=== PATIENT | female | born 1980 | race American Indian/Alaskan Native ===

== ENCOUNTER 2016-05-04 20:32 | Inpatient (IN) | payer MEDICAID ==
[2016-05-04] MEDS ORDERED: SUBLIMAZE IV PRN (22:14)
[2016-05-04] MEDS ORDERED: CERVIDIL VG ONE (22:14)
--- NOTE | 2016-05-04 22:23 | History and Physical Report ---
History of Present Illness Date of examination: 05/04/16 Date of admission: 05/04/16 20:32 Chief complaint: IOL for postdates History of present illness: HD#1 This is a 35 yo at 41 weeks admitted to labor and delivery for IOL for post dates. Her course include 1. AMA- visits to [facility] 2. External hemorrhoids -topicla creme 3. unstable lie -currently vertex 4. S>d APA followup with growth 5. Polyhydramnios labs O+ antibody neg H/H 11.3/36.2 pap normal Rubella IMM RPR NR Urine cxr neg Hep neg HIV neg Plt 283 HSV2 Neg sickle AAgonneg chlam neg US single viable EGA 14 weeks EDC 04/28/16 anterior placenta quad declined antatomy scan normal H/H 10.6/34.1 DM 104 HIV/RPR NR chlam neg nik neg GBS neg US +1 weeks EFW 4022 FERNY 18cm vertex ardon EGA 40+1 weeks antreior grade 2 -3 placenta BPP 8/8 Past History Past Medical History: no pertinent history Past Surgical History: no surgical history Family/Genetic History: none Social history: lives with family. denies: smoking, alcohol abuse, IV drug use - Obstetrical History Expected Date of Delivery: 04/28/16 Actual Gestation: 41 Week(s) 0 Day(s) : 1 Para: 0 Hx # Term Pregnancies: 0 Number of Pregnancies: 0 Spontaneous Abortions: 0 Induced : 0 Number of Living Children: 0 Medications and Allergies Allergies Allergy/AdvReac Type Severity Reaction Status Date / Time chloroquine Allergy Vomiting Verified 05/04/16 22:28 Home Medications Medication Instructions Recorded Confirmed Last Taken Type Pnv with Ca,No.72/Iron/FA [Pnv 1 tab PO DAILY 02/23/16 02/23/16 Unknown History Plus Multivit Tab] Pnv with Ca,No.72/Iron/FA [Pnv 1 tab PO DAILY 02/23/16 02/23/16 Unknown History Plus Multivit Tab] - Vital Signs Vital signs: Vital Signs Temp Pulse Resp BP 98.9 F 95 H 18 133/77 05/04/16 21:34 05/04/16 21:34 05/04/16 21:34 05/04/16 21:34 Temp Pulse Resp BP Pulse Ox 98.9 F 95 H 18 133/77 05/04/16 21:34 05/04/16 21:37 05/04/16 21:34 05/04/16 21:37 - Physical Exam Breasts: Positive: normal Cardiovascular: Regular rate, Normal S1, Normal S2 Lungs: Positive: Clear to auscultation, Normal air movement Abdomen: Positive: normal appearance, soft, normal bowel sounds. Negative: distention, tenderness Genitourinary (Female): Positive: normal external genitalia, normal perenium Vulva: both: normal Vagina: Positive: normal moisture Uterus: Positive: enlarged, normal contour Anus/Rectum: Positive: normal perianal skin, heme negative Extremities: Positive: normal Deep Tendon Reflex Grade: Normal +2 - Obstetrical FHR: category 1 Uterine Contraction Monitor Mode: Palpation Cervical Dilatation: 0 Cervical Effacement Percentage: 0 station: -4 Uterine Contraction Pattern: Irregular Uterine Tone Measurement Phase: Contraction Uterine Contraction Intensity: Mild Results Result Diagrams: 05/04/16 22:55 All other labs normal. Assessment and Plan A/P IOL for post dates --GBS neg no abx required --admission labs ---ivf initiated --unfavorable cervix will start with cervidil --counseled concernig iol which include risk of c/sec, usage of instrument delivery, shoulder dystocia , PP hemorrhage ---consents signed ---expect vaginal delivery ---routine orders ( pain meds, epidural , EFM continious)
[2016-05-04] MEDS ORDERED: BRETHINE SUB-Q PRN (22:32)
[2016-05-04] MEDS ORDERED: ePHEDrine SULFATE IV PRN (22:32)
[2016-05-04] MEDS ORDERED: MINERAL OIL PO PRN (22:32)
[2016-05-04] MEDS ORDERED: NARCAN 0.4 MG/1 ML IV PRN (22:32)
[2016-05-04] MEDS ORDERED: XYLOCAINE 2% INFILTRATI ONE (22:32)
[2016-05-04] MEDS ORDERED: PHENERGAN PO PRN (22:32)
[2016-05-04] MEDS ORDERED: BRETHINE IVP PRN (22:32)
[2016-05-04] MEDS ORDERED: ZOFRAN IV PRN (22:32)
[2016-05-04] MEDS ORDERED: PITOCin/NS 30 UNIT/500ML 30 UNITS/500 ML BAG IV SCH ×2 (23:00)
[2016-05-04] MEDS ORDERED: PITOCin/NS 20 UNIT/1000ML DRIP 20 UNITS/1,000 ML BAG IV SCH (23:00)
[2016-05-04] MEDS ORDERED: LACTATED RINGERS 1,000 ML IV SCH (23:00)
[2016-05-04 23:29] LABS: Hematocrit 34.4 % (30.3-42.9); Mean Corpuscular HGB Conc 32 % (30-34); Mean Corpuscular Hemoglobin 26 pg (28-32); Mean Corpuscular Volume 82 fl (79-97); Platelet Count 167 K/mm3 (140-440); Red Blood Count 4.18 M/mm3 (3.65-5.03); Red Cell Distribution Width 17.8 % (13.2-15.2); White Blood Count 7.7 K/mm3 (4.5-11.0)
--- NOTE | 2016-05-05 08:08 | Progress Note ---
Assessment and Plan A: IUP at 41 weeks Induction of labor Unfavorable Cervix P: Diet Am Care Cytotec Subjective - Subjective Date of service: 05/05/16 Patient reports: movement normal, contractions, no new complaints, no loss of fluid, no vaginal bleeding Objective - Vital Signs Vital Signs: Vital Signs - 12hr 05/04/16 05/04/16 05/04/16 21:34 21:37 23:25 Temperature 98.9 F Pulse Rate 95 H Pulse Rate [ 95 H Left From Monitor] Respiratory 18 Rate Blood Pressure 133/77 Blood Pressure 133/77 [Right Arm] O2 Sat by Pulse 95 Oximetry 05/04/16 05/04/16 05/04/16 23:30 23:35 23:40 Temperature Pulse Rate 98 H 97 H 82 Pulse Rate [ Left From Monitor] Respiratory Rate Blood Pressure Blood Pressure [Right Arm] O2 Sat by Pulse 98 98 99 Oximetry 05/04/16 05/04/16 05/04/16 23:45 23:50 23:55 Temperature Pulse Rate 99 H 95 H 98 H Pulse Rate [ Left From Monitor] Respiratory Rate Blood Pressure Blood Pressure [Right Arm] O2 Sat by Pulse 97 98 98 Oximetry 05/05/16 05/05/16 05/05/16 00:00 00:05 00:10 Temperature Pulse Rate 91 H 95 H 91 H Pulse Rate [ Left From Monitor] Respiratory Rate Blood Pressure Blood Pressure [Right Arm] O2 Sat by Pulse 98 98 97 Oximetry 05/05/16 05/05/16 05/05/16 00:15 00:20 00:25 Temperature Pulse Rate 91 H 93 H 91 H Pulse Rate [ Left From Monitor] Respiratory Rate Blood Pressure Blood Pressure [Right Arm] O2 Sat by Pulse 97 98 96 Oximetry 05/05/16 05/05/16 05/05/16 00:30 00:35 00:40 Temperature Pulse Rate 89 89 93 H Pulse Rate [ Left From Monitor] Respiratory Rate Blood Pressure Blood Pressure [Right Arm] O2 Sat by Pulse 96 97 97 Oximetry 05/05/16 05/05/16 05/05/16 00:45 00:50 00:55 Temperature Pulse Rate 99 H 96 H 89 Pulse Rate [ Left From Monitor] Respiratory Rate Blood Pressure Blood Pressure [Right Arm] O2 Sat by Pulse 96 96 98 Oximetry 05/05/16 05/05/16 05/05/16 01:00 01:05 01:10 Temperature Pulse Rate 88 89 89 Pulse Rate [ Left From Monitor] Respiratory Rate Blood Pressure Blood Pressure [Right Arm] O2 Sat by Pulse 98 98 98 Oximetry 05/05/16 05/05/16 05/05/16 01:15 01:20 01:25 Temperature Pulse Rate 89 100 H 78 Pulse Rate [ Left From Monitor] Respiratory Rate Blood Pressure Blood Pressure [Right Arm] O2 Sat by Pulse 97 98 97 Oximetry 05/05/16 05/05/16 05/05/16 01:30 01:35 01:40 Temperature Pulse Rate 88 83 89 Pulse Rate [ Left From Monitor] Respiratory Rate Blood Pressure Blood Pressure [Right Arm] O2 Sat by Pulse 97 98 96 Oximetry 05/05/16 05/05/16 05/05/16 01:45 01:46 01:50 Temperature Pulse Rate 88 111 H 84 Pulse Rate [ Left From Monitor] Respiratory Rate Blood Pressure Blood Pressure [Right Arm] O2 Sat by Pulse 95 94 98 Oximetry 05/05/16 05/05/16 05/05/16 01:55 02:00 02:05 Temperature Pulse Rate 101 H 90 87 Pulse Rate [ Left From Monitor] Respiratory Rate Blood Pressure Blood Pressure [Right Arm] O2 Sat by Pulse 96 96 97 Oximetry 05/05/16 05/05/16 05/05/16 02:10 02:21 02:26 Temperature Pulse Rate 96 H 99 H 90 Pulse Rate [ Left From Monitor] Respiratory Rate Blood Pressure Blood Pressure [Right Arm] O2 Sat by Pulse 97 98 98 Oximetry 05/05/16 05/05/16 05/05/16 02:31 02:36 02:41 Temperature Pulse Rate 84 91 H 82 Pulse Rate [ Left From Monitor] Respiratory Rate Blood Pressure Blood Pressure [Right Arm] O2 Sat by Pulse 98 97 97 Oximetry 05/05/16 05/05/16 05/05/16 02:46 02:51 02:56 Temperature Pulse Rate 97 H 89 96 H Pulse Rate [ Left From Monitor] Respiratory Rate Blood Pressure Blood Pressure [Right Arm] O2 Sat by Pulse 97 97 96 Oximetry 05/05/16 05/05/16 05/05/16 03:01 03:06 03:11 Temperature Pulse Rate 91 H 90 90 Pulse Rate [ Left From Monitor] Respiratory Rate Blood Pressure Blood Pressure [Right Arm] O2 Sat by Pulse 97 97 96 Oximetry 05/05/16 05/05/1605/05/17 03:16 03:18 03:21 Temperature Pulse Rate 88 92 H 100 H Pulse Rate [ Left From Monitor] Respiratory Rate Blood Pressure Blood Pressure [Right Arm] O2 Sat by Pulse 96 94 92 Oximetry 05/05/16 05/05/16 05/05/16 03:23 03:26 03:29 Temperature Pulse Rate 101 H 98 H 96 H Pulse Rate [ Left From Monitor] Respiratory Rate Blood Pressure Blood Pressure [Right Arm] O2 Sat by Pulse 92 96 94 Oximetry 05/05/16 05/05/16 05/05/16 03:31 03:35 03:36 Temperature Pulse Rate 97 H 86 89 Pulse Rate [ Left From Monitor] Respiratory Rate Blood Pressure Blood Pressure [Right Arm] O2 Sat by Pulse 93 93 94 Oximetry 05/05/16 05/05/16 05/05/16 03:41 03:43 03:46 Temperature Pulse Rate 93 H 93 H 86 Pulse Rate [ Left From Monitor] Respiratory Rate Blood Pressure Blood Pressure [Right Arm] O2 Sat by Pulse 96 93 95 Oximetry 05/05/16 05/05/16 05/05/16 03:51 03:56 04:01 Temperature Pulse Rate 93 H 82 79 Pulse Rate [ Left From Monitor] Respiratory Rate Blood Pressure Blood Pressure [Right Arm] O2 Sat by Pulse 93 97 97 Oximetry 05/05/16 05/05/16 05/05/16 04:05 04:11 04:16 Temperature Pulse Rate 90 81 91 H Pulse Rate [ Left From Monitor] Respiratory Rate Blood Pressure Blood Pressure [Right Arm] O2 Sat by Pulse 96 97 96 Oximetry 05/05/16 05/05/16 05/05/16 04:17 04:21 04:26 Temperature Pulse Rate 86 93 H 87 Pulse Rate [ Left From Monitor] Respiratory Rate Blood Pressure Blood Pressure [Right Arm] O2 Sat by Pulse 94 96 96 Oximetry 05/05/16 05/05/16 05/05/16 04:29 04:30 04:35 Temperature Pulse Rate 91 H 93 H 88 Pulse Rate [ Left From Monitor] Respiratory Rate Blood Pressure Blood Pressure [Right Arm] O2 Sat by Pulse 94 96 96 Oximetry 05/05/16 05/05/16 05/05/16 04:40 04:46 04:51 Temperature Pulse Rate 83 86 84 Pulse Rate [ Left From Monitor] Respiratory Rate Blood Pressure Blood Pressure [Right Arm] O2 Sat by Pulse 96 96 96 Oximetry 05/05/16 05/05/16 05/05/16 04:55 05:01 05:05 Temperature Pulse Rate 82 86 89 Pulse Rate [ Left From Monitor] Respiratory Rate Blood Pressure Blood Pressure [Right Arm] O2 Sat by Pulse 96 97 96 Oximetry 05/05/16 05/05/16 05/05/16 05:11 05:15 05:21 Temperature Pulse Rate 85 87 87 Pulse Rate [ Left From Monitor] Respiratory Rate Blood Pressure Blood Pressure [Right Arm] O2 Sat by Pulse 97 96 97 Oximetry 05/05/16 05/05/16 05/05/16 05:25 05:30 05:36 Temperature Pulse Rate 83 84 99 H Pulse Rate [ Left From Monitor] Respiratory Rate Blood Pressure Blood Pressure [Right Arm] O2 Sat by Pulse 96 88 96 Oximetry 05/05/16 05/05/16 05/05/16 05:40 05:45 05:50 Temperature Pulse Rate 87 91 H 93 H Pulse Rate [ Left From Monitor] Respiratory Rate Blood Pressure Blood Pressure [Right Arm] O2 Sat by Pulse 97 97 98 Oximetry 05/05/16 05/05/16 05/05/16 05:56 06:00 06:05 Temperature Pulse Rate 84 82 90 Pulse Rate [ Left From Monitor] Respiratory Rate Blood Pressure Blood Pressure [Right Arm] O2 Sat by Pulse 97 96 97 Oximetry 05/05/16 05/05/16 05/05/16 06:10 06:29 06:33 Temperature Pulse Rate 87 93 H 87 Pulse Rate [ Left From Monitor] Respiratory Rate Blood Pressure Blood Pressure [Right Arm] O2 Sat by Pulse 97 99 97 Oximetry 05/05/16 05/05/16 05/05/16 06:38 06:43 06:48 Temperature Pulse Rate 86 89 89 Pulse Rate [ Left From Monitor] Respiratory Rate Blood Pressure Blood Pressure [Right Arm] O2 Sat by Pulse 99 98 99 Oximetry 05/05/16 05/05/16 05/05/16 06:53 06:58 07:03 Temperature Pulse Rate 99 H 92 H 98 H Pulse Rate [ Left From Monitor] Respiratory Rate Blood Pressure Blood Pressure [Right Arm] O2 Sat by Pulse 98 98 98 Oximetry 05/05/16 05/05/16 05/05/16 07:08 07:13 07:18 Temperature 98.8 F Pulse Rate 83 87 82 Pulse Rate [ Left From Monitor] Respiratory 14 Rate Blood Pressure Blood Pressure [Right Arm] O2 Sat by Pulse 98 98 98 Oximetry 05/05/16 05/05/16 05/05/16 07:23 07:28 07:33 Temperature Pulse Rate 82 81 105 H Pulse Rate [ Left From Monitor] Respiratory Rate Blood Pressure Blood Pressure [Right Arm] O2 Sat by Pulse 98 99 97 Oximetry 05/05/16 05/05/16 05/05/16 07:38 07:43 07:48 Temperature Pulse Rate 91 H 89 83 Pulse Rate [ Left From Monitor] Respiratory Rate Blood Pressure Blood Pressure [Right Arm] O2 Sat by Pulse 98 98 97 Oximetry 05/05/16 05/05/16 07:53 07:58 Temperature Pulse Rate 78 91 H Pulse Rate [ Left From Monitor] Respiratory Rate Blood Pressure Blood Pressure [Right Arm] O2 Sat by Pulse 98 99 Oximetry - Exam Abdomen: Present: normal appearance FHR: category 1 Uterine Contraction Monitor Mode: External Cervical Dilatation: 0 Cervical Effacement Percentage: 30 station: -4 Uterine Contraction Pattern: Irregular Uterine Tone Measurement Phase: Resting Uterine Contraction Intensity: Mild - Labs Labs: Abnormal Labs 05/04/16 22:55 MCH 26 L RDW 17.8 H Laboratory Results - last 24 hr 05/04/16 05/04/16 22:55 22:55 WBC 7.7 RBC 4.18 Hgb 11.0 Hct 34.4 MCV 82 MCH 26 L MCHC 32 RDW 17.8 H Plt Count 167 Blood Type O POSITIVE Antibody Screen Negative
[2016-05-05] MEDS: CYTOTEC VG PRN ×2 (10:00→14:00)
[2016-05-05] MEDS ORDERED: STADOL IV PRN (16:39)
[2016-05-05] MEDS ORDERED: ePHEDrine SULFATE IV PRN (18:37)
[2016-05-05] MEDS ORDERED: NARCAN 2 MG/2 ML IV PRN (18:37)
--- NOTE | 2016-05-05 18:37 | Anesthesia Consultation ---
Anesthesia Consult and Med Hx Date of service: 05/05/16 - Airway Anesthetic Teeth Evaluation: Good ROM Head & Neck: Adequate Mental/Hyoid Distance: Adequate Mallampati Class: Class II Intubation Access Assessment: Good - Pulmonary Exam CTA: Yes - Cardiac Exam Cardiac Exam: No Murmur - Pre-Operative Health Status ASA Pre-Surgery Classification: ASA2 Proposed Anesthetic Plan: Epidural - Pulmonary Hx Asthma: No COPD: No Hx Pneumonia: No - Cardiovascular System Hx Hypertension: No - Central Nervous System Hx Seizures: No Hx Psychiatric Problems: No - Endocrine Hx Renal Disease: No Hx End Stage Renal Disease: No Hx Hypothyroidism: No Hx Hyperthyroidism: No - Hematic Hx Anemia: No Hx Sickle Cell Disease: No - Other Systems Hx Alcohol Use: No
[2016-05-05] MEDS ORDERED: fentaNYL-BUPIV 2 MCG/ML-0.125% 200 MCG/100 ML BAG EPIDURAL SCH (19:00)
[2016-05-06] MEDS ORDERED: PEPCID IV ONE (00:51)
[2016-05-06] MEDS ORDERED: REGLAN ONE (00:51)
[2016-05-06] MEDS ORDERED: BICITRA ONE (00:51)
--- NOTE | 2016-05-06 01:04 | Event Note ---
Date: 05/06/16 station remains unchanged throughout labor process though she is complete and FHTs now with repetitive late decelerations with each contraction. Plan to proceed with primary section and other indicated procedures.
[2016-05-06] MEDS ORDERED: ANCEF/STERILE WATER 2 GM/20 ML IV ONE (01:10)
[2016-05-06] MEDS ORDERED: XYLOCAINE MPF 2% ONE ×4 (01:25)
[2016-05-06] MEDS ORDERED: DIPRIVAN 10 MG/ML IV ONE (01:30)
[2016-05-06] MEDS ORDERED: NACL 0.9% IR ONE (01:30)
[2016-05-06] MEDS ORDERED: WATER FOR IRRIG STERILE IR ONE (01:30)
[2016-05-06] MEDS ORDERED: MORPHINE ONE ×2 (01:45→01:46)
[2016-05-06] MEDS ORDERED: NS 0.9% IV ONE (02:06)
--- NOTE | 2016-05-06 02:39 | Procedure Note ---
OB Delivery Note - Delivery Date of Delivery: 05/06/16 Surgeon: STEPHANIE SCHULTZ Estimated blood loss: 1000cc - Section Preop diagnosis: arrest of descent, nonreassuring FHR tracing Postop diagnosis: same section procedure: section, primary low transverse Disposition: PACU Complications: uterine atony Narrative: Please see operative note - Infant A at 1 minute: 3 at 5 minutes: 5 Infant Gender: Male (Apgars 3,5,8; 4427g (9lb 12 oz) @ 0148)
--- NOTE | 2016-05-06 02:43 | Operative Report ---
Operative Report Operative Report: Date of procedure: May 06, 2016 Preoperative diagnosis: 1) IUP at 41w1d 2) Nonreassuring status 3) Arrest of Descent 4) Cephalopelvic disproportion Postoperative diagnosis: Same Procedure: Primary low transverse section Surgeon: Sharlene Hernandez M.D. Anesthesia:Epidural Findings: 1) Viable male , Apgars 3,5 and 8, weight 4427g, (9 lb 12 oz) 2) Normal-appearing uterus ovaries and tubes Estimated blood loss: 1000 mL IV fluids: 1200 mL Urine output 200 mL, blood-tinged prior to the procedure; ramona colored after the procedure Drains: Frye to gravity Specimens: None Complications None. Counts correct x 3 Medications: Total of 40 units of pitocin given in IV fluids Disposition: Stable to PACU Indication for procedure: Pt is a 35 year old primigradivida at 41w1d who was admitted for induction secondary to postdates. She progressed to complete dilation, but never achieved more than -3 station. The FHT began to have repetitive late decelerations and the decision was made to proceed with delivery. Operation in detail: After the risks, benefits, alternatives and complications were explained to the patient she gave informed consent for the procedure. She was subsequently taken to the operating room where epidural anesthesia was noted to be adequate. She was subsequently placed in the dorsal supine position with leftward tilt and prepped and draped in a normal sterile fashion. heart tones were noted to be in the 140s prior to incision. A timeout was performed. A Pfannenstiel skin incision was made with the knife and carried down to the layer of the fascia with the Bovie. The fascia was incised in the midline and the fascial incision was extended bilaterally with the Bovie. Attention was then turned to the superior aspect of the incision which was grasped with two Kochers, tented up, and dissected off the rectus muscles. Attention was then turned to the inferior aspect of the incision which was grasped with two Kochers , tented up and dissected off the rectus muscles. The rectus muscles were then in the midline and partially transected for adequate visualization. The peritoneum was then entered bluntly. The peritoneal incision was extended with good visualization of the bladder. The peritoneal incision was then stretched. An Bandar self-retaining retractor was placed for visualization. The bladder blade was placed. The vesicouterine peritoneum was grasped with smooth pickups and incised with Metzenbaum scissors. Metzenbaum scissors were used to extend the incision bilaterally. The bladder flap was then created digitally and the bladder blade was replaced. A transverse incision was made in the lower uterine segment with a knife and extended bilaterally with the bandage scissors. The head was delivered without difficulty followed by shoulders and body. was bulb suctioned at delivery. The cord was clamped and cut and the was handed to NICU staff in attendance. Cord blood was collected. The placenta was then delivered manually. The uterus was then cleared of all clots and debris. The hysterotomy was then reapproximated with 0 Vicryl in a running locked fashion. A second layer of the same suture was used in imbricating fashion. The uterus was noted to be atonic and an additional 20 units of pitocin was added to the IV fluids. The hysterotomy was inspected and hemostasis was noted. The Bandar self-retaining retractor was removed. The gutters were irrigated and cleared of all clots and debris. The hysterotomy was again inspected and noted to be hemostatic. Surgicel was placed over the hysterotomy. The peritoneum was reapproximated with 3-0 Vicryl. The fascia was reapproximated with 0 Vicryl in a running fashion. The skin was reapproximated with 4-0 Vicryl in a subcuticular fashion. The incision was then covered with steri strips and a pressure dressing. The procedure was then ended. The patient tolerated the procedure well and was taken to the PACU in stable condition. All instrument, lap, and needle counts were correct 3.
[2016-05-06] MEDS ORDERED: PHENERGAN PR PRN (02:53)
[2016-05-06] MEDS ORDERED: DILAUDID IV PRN (02:53)
[2016-05-06] MEDS ORDERED: PHENERGAN PO PRN (02:53)
[2016-05-06] MEDS ORDERED: ZOFRAN IV PRN ×2 (02:53→04:36)
[2016-05-06] MEDS ORDERED: NARCAN 0.4 MG/1 ML IV PRN ×2 (02:53→04:36)
--- NOTE | 2016-05-06 02:53 | Post Anesthesia Evaluation ---
- Post Anesthesia Evaluation Patient Participated: Yes Airway Patent: Yes Stable Respiratory Function: Yes Nausea/Vomiting: No Temp > 96.8F: Yes Pain Manageable: Yes Adequeate Hydration: Yes Anesthesia Complications: No
[2016-05-06] MEDS ORDERED: fentaNYL-BUPIV 2 MCG/ML-0.125% 200 MCG/100 ML BAG EPIDURAL SCH (03:00)
[2016-05-06] MEDS ORDERED: SODIUM CHLORIDE FLUSH SYRINGE 10 ML IV PRN ×2 (03:00→04:36)
[2016-05-06] MEDS ORDERED: MYLICON PO PRN (04:36)
[2016-05-06] MEDS ORDERED: PITOCin/NS 20 UNIT/1000ML DRIP 20 UNITS/1,000 ML BAG IV SCH (04:36)
[2016-05-06] MEDS ORDERED: D5LR 1,000 ML IV SCH (04:36)
[2016-05-06] MEDS ORDERED: MORPHINE IV PRN ×2 (04:36)
[2016-05-06] MEDS ORDERED: TUCKS PAD TP PRN (04:36)
[2016-05-06] MEDS ORDERED: TORADOL IV PRN (04:36)
[2016-05-06] MEDS ORDERED: LANSINOH TP PRN (04:36)
[2016-05-06] MEDS: ANCEF/NS 1 GM/50 ML 1 GM/50 ML BAG IV SCH ×2 (08:39→15:38)
[2016-05-06] MEDS: PRENATAL VITAMIN PO SCH (10:59)
[2016-05-06] MEDS: FEOSOL PO SCH ×2 (10:59→22:17)
[2016-05-06 13:02] LABS: Hematocrit 30.8 % (30.3-42.9); Hemoglobin 9.9 gm/dl (10.1-14.3)
[2016-05-06] MEDS: MOTRIN PO PRN ×2 (15:38→23:33)
[2016-05-06] MEDS: PERCOCET 5/325 PO PRN (15:39)
[2016-05-07] MEDS ORDERED: M-M-R II VACCINE SUB-Q ONE (02:46)
[2016-05-07] MEDS: MOTRIN PO PRN ×3 (05:19→22:27)
[2016-05-07] MEDS ORDERED: BOOSTRIX IM ONE (06:00)
--- NOTE | 2016-05-07 08:50 | Progress Note ---
Assessment and Plan A: POD#1 s/p primary section at term; Asymptomatic anemia P: Routine postoperative care. Bowel regimen. Abdominal binder. Subjective - Subjective Date of service: 05/07/16 Principal diagnosis: s/p primary at term Interval history: No overnight events. Patient reports: appetite normal, pain well controlled, ambulating normally, no flatus, no bowel movement, no nauseated [place]: doing well Objective - Vital Signs Latest vital signs: Vital Signs Temp Pulse Pulse Resp BP 05/07/16 01:14 98.4 F 90 18 136/79 05/06/16 16:00 98.7 F 82 20 100/74 05/06/16 11:56 98.5 F 82 20 124/80 Intake and Output 05/06/16 05/07/16 05/07/16 22:59 06:59 14:59 Intake Total 240 240 Output Total 800 100 Balance -560 140 Intake: Oral 240 240 Output: Urine 800 100 Indwelling Catheter 400 Void 400 100 Other: Total, Intake Amount 240 240 Total, Output Amount 400 100 # Voids Indwelling Catheter 1 Void 1 - Exam Breasts: Present: deferred Cardiovascular: Present: Regular rate Lungs: Present: Clear to auscultation Abdomen: Present: soft, distention (moderate ), normal bowel sounds Uterus: Present: fundal height at umbilicus Extremities: Present: edema (+1 ) Incision: Present: dressed - Labs Labs: Abnormal lab results 05/06/16 Range/Units 12:49 Hgb 9.9 L (10.1-14.3) gm/dl
[2016-05-07] MEDS: PRENATAL VITAMIN PO SCH (10:08)
[2016-05-07] MEDS: FEOSOL PO SCH ×2 (10:08→22:06)
[2016-05-07] MEDS: MILK OF MAGNESIA PO SCH ×3 (10:08→17:58)
[2016-05-07] MEDS: LASIX PO SCH (10:08)
[2016-05-07] MEDS: PERCOCET 5/325 PO PRN (13:11)
--- NOTE | 2016-05-07 16:02 | Progress Note ---
Subjective Date of service: 05/07/16 Principal diagnosis: s/p primary at term Interval history: 1st POD after Patient is in the bed, comfortable. Pain is well controlled with pain meds. Ambulated well. No residual neurological deficit. No anesthesia complications Objective - Constitutional Vitals: Vital Signs - 12hr 05/07/16 08:45 Temperature 98.8 F Pulse Rate [ 91 H Right] Respiratory 20 Rate Blood Pressure 132/83 [Right Arm] - Labs CBC & Chem 7: 05/06/16 12:49
[2016-05-08] MEDS: MILK OF MAGNESIA PO SCH ×5 (00:06→13:13)
--- NOTE | 2016-05-08 10:08 | Progress Note ---
Assessment and Plan pod 1 s/p primary c/s. doing well. d/c home tomorrow. Subjective - Subjective Date of service: 05/08/16 Principal diagnosis: s/p primary at term Interval history: pod 1 s/p Patient reports: appetite normal, voiding normally, pain well controlled [place]: doing well Objective - Vital Signs Latest vital signs: Vital Signs Temp Pulse Resp BP BP 05/08/16 00:50 98.6 F 82 22 138/72 05/07/16 16:20 98.6 F 93 H 20 140/80 Intake and Output 05/07/16 05/08/16 05/08/16 22:59 06:59 14:59 Intake Total 480 500 Balance 480 500 Intake: Oral 480 Intake, Free Water 500 Other: Total, Intake Amount 240 # Voids Void 1 # Bowel Movements 1 - Exam Breasts: Present: deferred Cardiovascular: Present: Regular rate, Normal S1, Normal S2 Lungs: Present: Clear to auscultation Abdomen: Present: normal appearance, soft Vulva: both: normal Uterus: Present: normal, firm Extremities: Present: normal Deep Tendon Reflex Grade: Normal +2 Incision: Present: normal, dry, intact
[2016-05-08] MEDS: FEOSOL PO SCH (11:41)
[2016-05-08] MEDS: LASIX PO SCH (11:42)
[2016-05-08] MEDS: PRENATAL VITAMIN PO SCH (11:43)
[2016-05-08] MEDS: PERCOCET 5/325 PO PRN ×2 (11:48)
[2016-05-08] MEDS: MOTRIN PO PRN ×2 (11:50→20:44)
--- NOTE | 2016-05-09 00:57 | Discharge Summary ---
Providers - Providers Date of Admission: 05/04/16 20:32 Date of discharge: 05/09/16 Attending physician: SHAN NGUYEN MD 05/06/16 04:36 Consult to Weighter [CONS] Routine Reason For Exam: Primary care physician: SHRUTHI MONK Hospitalization Reason for admission: active labor Delivery: Procedure: section, primary low transverse Procedure details: s/p primary c/s of male infant Episiotomy: none Laceration: none Incision: normal, intact Other procedures: none complications: none Discharge diagnosis: IUP at term delivered baby: male Hospital course: Routine post op course Condition at discharge: Good Disposition: DISCHARGED TO HOME OR SELFCARE - Discharge Diagnoses (1) Status post primary low transverse section Status: Acute Plan - Discharge Medications Prescriptions: Ferrous Sulfate [Feosol 325 MG tab] 325 mg PO BID #60 tablet Ibuprofen [Motrin] 800 mg PO Q8HR PRN #30 tablet PRN Reason: Pain oxyCODONE /ACETAMINOPHEN [Percocet 5/325] 1 tab PO Q6HR PRN #40 tablet PRN Reason: Pain Vit-Fe Fumar-FA [ Vitamin] 1 tab PO QDAY #30 tablet - Provider Discharge Summary Activity: routine, no sex for 6 weeks, no heavy lifting 4 weeks, no strenuous exercise Diet: routine Instructions: routine Additional instructions: [] Smoking cessation referral if applicable(refer to patient education folder for contact #) [] Refer to [facility] Booklet Call your doctor immediately for: * Fever > 100.5 * Heavy vaginal bleeding ( >1 pad per hour) * Severe persistent headache * Shortness of breath * Reddened, hot, painful area to leg or breast * Drainage or odor from incision. * Keep incision clean and dry at all times and follow doctor's instructions regarding bathing/showering - Follow up plan Follow up: SHRUTHI MONK MD [Primary Care Provider] - 14 Days
[2016-05-09] MEDS: FEOSOL PO SCH ×2 (01:34→09:25)
[2016-05-09] MEDS: PERCOCET 5/325 PO PRN ×2 (01:51→08:45)
[2016-05-09] MEDS: MILK OF MAGNESIA PO SCH ×2 (05:50→09:22)
[2016-05-09] MEDS: MOTRIN PO PRN (08:44)
[2016-05-09] MEDS: LASIX PO SCH (09:26)
[2016-05-09 12:37] VITALS: BP 120/66
[2016-05-09] MEDS: PRENATAL VITAMIN PO SCH (13:26)
== END 2016-05-09 13:20 | disposition home or self-care (01) | DRG 765 ==
LOC: LD 20:32 → OB 05-06 04:22
PROVIDERS: ADMIT Obstetrics & Gynecology; ATTEND Obstetrics & Gynecology
PROC: 10D00Z1 Extraction of Products of Conception, Low, Open Approach (ICD-10-PCS; principal; 2016-05-06)
PROC: 3E0234Z Introduction of Serum, Toxoid and Vaccine into Muscle, Percutaneous Approach (ICD-10-PCS; 2016-05-06)
DX: O48.0 Post-term pregnancy (principal); O22.43 Hemorrhoids in pregnancy, third trimester; O40.3XX0 Polyhydramnios, third trimester, not applicable or unspecified; O65.9 Obstructed labor due to maternal pelvic abnormality, unspecified; Z3A.41 41 weeks gestation of pregnancy; Z37.0 Single live birth; O09.513 Supervision of elderly primigravida, third trimester; Z88.8 Allergy status to other drugs, medicaments and biological substances; Z23 Encounter for immunization
CPT/HCPCS: 36415; 59200; 85014; 85018; 85027; 86850; 86900; 86901; 99211; A6250; G0463; J0595; J0690; J1170; J1885; J2270; J2590; J2704; J2765; J7120; J7121

== ENCOUNTER 2020-09-21 16:52 | Emergency (ER) | payer MEDICAID ==
[2020-09-21 20:24] VITALS: BP 130/83
--- NOTE | 2020-09-21 21:26 | Event Note ---
ED Screening Note Date of service: 09/21/20 Time: 21:25 ED Screening Note: Patient complains of right upper quadrant abdominal pain x1 week Admits to nausea with eating States pain radiating to her right shoulder Denies chest pain or shortness of breath History of GERD This initial assessment/diagnostic orders/clinical plan/treatment(s) is/are subject to change based on patients health status, clinical progression and re- assessment by fellow clinical providers in the ED. Further treatment and workup at subsequent clinical providers discretion. Patient/guardian urged not to elope from the ED as their condition may be serious if not clinically assessed and managed. Initial orders include: Labs Right upper quadrant ultrasound
[2020-09-21 21:39] LABS: Basophils # (Auto) 0.1 K/mm3 (0.0-0.1); Eosinophils # (Auto) 0.1 K/mm3 (0.0-0.4); Eosinophils % (Auto) 1.1 % (0.0-4.3); Hematocrit 38.4 % (30.3-42.9); Hemoglobin 12.3 gm/dl (10.1-14.3); Lymphocytes # (Auto) 3.8 K/mm3 (1.2-5.4); Lymphocytes % (Auto) 45.4 % (13.4-35.0); Mean Corpuscular HGB Conc 32 % (30-34); Mean Corpuscular Volume 81 fl (79-97); Monocytes # (Auto) 0.6 K/mm3 (0.0-0.8); Monocytes % (Auto) 6.7 % (0.0-7.3); Platelet Count 333 K/mm3 (140-440); Red Blood Count 4.75 M/mm3 (3.65-5.03); Red Cell Distribution Width 16.4 % (13.2-15.2)
[2020-09-21 22:14] LABS: Alanine Aminotransferase 14 units/L (7-56); Albumin 3.7 g/dL (3.9-5); BUN/Creatinine Ratio 21; Blood Urea Nitrogen 17 mg/dL (7-17); Calcium 9.3 mg/dL (8.4-10.2); Hemolysis Index 9
--- NOTE | 2020-09-21 22:14 | Ultrasound Report ---
ULTRASOUND ABDOMEN, LIMITED INDICATION / CLINICAL INFORMATION: RUQ pain. COMPARISON: None available. FINDINGS: PANCREAS: Visualized portion shows no significant abnormality. LIVER: No significant abnormality. GALLBLADDER: Multiple gallstones are seen throughout the gallbladder. Gallbladder wall measures 2 mm. No pericholecystic fluid BILE DUCTS: No significant abnormality. Common bile duct measures mm. FREE FLUID: None. ADDITIONAL FINDINGS: None. IMPRESSION: 1. Cholelithiasis Signer Name: Fernandez Bright MD Signed: 09/21/2020 10:09 PM Workstation Name: [id number]
--- NOTE | 2020-09-21 22:28 | XRay Report ---
CHEST 2 VIEWS INDICATION / CLINICAL INFORMATION: RLL PAIN. COMPARISON: None available. FINDINGS: SUPPORT DEVICES: None. HEART / MEDIASTINUM: No significant abnormality. LUNGS / PLEURA: No significant pulmonary or pleural abnormality. No pneumothorax. ADDITIONAL FINDINGS: No significant additional findings. IMPRESSION: 1. No acute findings. Signer Name: Fernandez Bright MD Signed: 09/21/2020 10:23 PM Workstation Name: [id number]
[2020-09-22 00:11] LABS: Bilirubin,Urine NEG (Negative); Blood,Urine NEG (Negative); Color,Urine Yellow (Yellow); Mucus,Urine FEW /HPF; Protein,Urine <15 mg/dL mg/dL (Negative); Urobilinogen,Urine < 2.0 mg/dL (<2.0); WBC,Urine < 1.0 /HPF (0.0-6.0)
[2020-09-22] MEDS ORDERED: KETOROLAC 30 MG/1 ML INJ IM ONE (01:30)
[2020-09-22] MEDS ORDERED: ONDANSETRON 4 MG ODT TAB PO ONE (01:30)
[2020-09-22] MEDS ORDERED: FAMOTIDINE 20 MG TAB PO ONE (01:30)
--- NOTE | 2020-09-22 01:30 | Emergency Department Report ---
ED General Adult HPI - General Chief complaint: Shoulder Injury Stated complaint: PAIN IN RT RIB THRU SHOULDER Time Seen by Provider: 09/21/20 21:19 Source: patient Mode of arrival: Ambulatory Limitations: No Limitations - History of Present Illness Initial comments: Patient is a 40-year-old -Spanish female with past medical history of morbid obesity who presents to the ED with complaint of acute onset persistent right upper quadrant abdominal pain that radiates to the epigastric area with nausea and right shoulder pain for the last 1 week, worse in the last 2 days. Patient states that the pain gets worse with food especially at night she has not been able to sleep because of persistent pain. Patient denies vomiting, fever, chills, chest pain, shortness of breath, diarrhea, dysuria, urinary frequency and urgency, palpitations, neck pain, traumatic injury, heavy lifting, headache, dizziness or syncope. MD Complaint: Right upper quadrant abdominal pain; right shoulder pain -: Sudden Location: abdomen (Right upper quadrant pain), upper extremity (Right shoulder pain) Radiation: extremity (Right shoulder), abdomen (Epigastric pain) Severity scale (0 -10): 8 Quality: aching, sharp Consistency: constant Improves with: none Worsens with: eating Associated Symptoms: denies other symptoms, loss of appetite, malaise, nausea/vomiting. denies: confusion, chest pain, cough, diaphoresis, fever/chills, headaches, rash, seizure, shortness of breath, syncope, weakness Treatments Prior to Arrival: none - Related Data Previous Rx's Medication Instructions Recorded Last Taken Type Vit-Fe Fumar-FA [ 1 tab PO QDAY #30 tablet 05/06/16 12/18/17 22:45 Rx Vitamin] Ibuprofen [Motrin] 600 mg PO Q8H PRN #30 tablet 12/19/17 Unknown Rx oxyCODONE /ACETAMINOPHEN [Percocet 1 tab PO Q6HR PRN #30 tablet 12/19/17 Unknown Rx 5/325] Dicyclomine [Bentyl] 20 mg PO Q6H PRN #30 tablet 09/22/20 Unknown Rx Esomeprazole Magnesium [NexIUM] 40 mg PO QDAY #30 capsule. 09/22/20 Unknown Rx Famotidine [Pepcid] 20 mg PO BID #60 tablet 09/22/20 Unknown Rx Ondansetron [Zofran Odt] 4 mg PO Q6HR PRN #20 tab.rapdis 09/22/20 Unknown Rx traMADoL [Ultram] 50 mg PO Q6HR PRN #12 tablet 09/22/20 Unknown Rx Allergies Allergy/AdvReac Type Severity Reaction Status Date / Time chloroquine Allergy Vomiting Verified 05/04/16 22:28 ED Review of Systems ROS: Stated complaint: PAIN IN RT RIB THRU SHOULDER Other details as noted in HPI Constitutional: denies: chills, fever Eyes: denies: eye pain, eye discharge, vision change ENT: denies: ear pain, throat pain Respiratory: denies: cough, shortness of breath, wheezing Cardiovascular: denies: chest pain, palpitations Endocrine: no symptoms reported Gastrointestinal: abdominal pain (Right upper quadrant abdominal pain), nausea. denies: vomiting, diarrhea Genitourinary: denies: urgency, dysuria, discharge Musculoskeletal: arthralgia (Right shoulder pain). denies: back pain, joint swelling Skin: denies: rash, lesions Neurological: denies: headache, weakness, paresthesias Psychiatric: denies: anxiety, depression Hematological/Lymphatic: denies: easy bleeding, easy bruising ED Past Medical Hx - Past Medical History Hx Hypertension: No Hx Congestive Heart Failure: No Hx Diabetes: No Hx Deep Vein Thrombosis: No Hx Renal Disease: No Hx Sickle Cell Disease: No Hx Seizures: No Hx Asthma: No Hx COPD: No Hx HIV: No - Social History Smoking Status: Never Smoker Substance Use Type: None - Medications Home Medications: Home Medications Medication Instructions Recorded Confirmed Last Taken Type Vit-Fe Fumar-FA [ 1 tab PO QDAY #30 tablet 05/06/16 12/19/17 12/18/17 22:45 Rx Vitamin] Ibuprofen [Motrin] 600 mg PO Q8H PRN #30 tablet 12/19/17 Unknown Rx oxyCODONE /ACETAMINOPHEN [Percocet 1 tab PO Q6HR PRN #30 tablet 12/19/17 Unknown Rx 5/325] Dicyclomine [Bentyl] 20 mg PO Q6H PRN #30 tablet 09/22/20 Unknown Rx Esomeprazole Magnesium [NexIUM] 40 mg PO QDAY #30 capsule. 09/22/20 Unknown Rx Famotidine [Pepcid] 20 mg PO BID #60 tablet 09/22/20 Unknown Rx Ondansetron [Zofran Odt] 4 mg PO Q6HR PRN #20 tab.rapdis 09/22/20 Unknown Rx traMADoL [Ultram] 50 mg PO Q6HR PRN #12 tablet 09/22/20 Unknown Rx ED Physical Exam - General Limitations: No Limitations General appearance: alert, in no apparent distress - Head Head exam: Present: atraumatic, normocephalic, normal inspection - Eye Eye exam: Present: normal appearance, PERRL, EOMI Pupils: Present: normal accommodation - ENT ENT exam: Present: normal exam, normal orophraynx, mucous membranes moist, TM's normal bilaterally, normal external ear exam - Neck Neck exam: Present: normal inspection, full ROM - Respiratory Respiratory exam: Present: normal lung sounds bilaterally. Absent: respiratory distress, wheezes, rales, rhonchi, stridor, chest wall tenderness, accessory muscle use, decreased breath sounds, prolonged expiratory - Cardiovascular Cardiovascular Exam: Present: regular rate, normal rhythm, normal heart sounds. Absent: systolic murmur, diastolic murmur, rubs, gallop - GI/Abdominal GI/Abdominal exam: Present: soft, tenderness (Palpable right upper quadrant and epigastric tenderness with a positive Stern sign), guarding, normal bowel sounds. Absent: rebound, rigid, hyperactive bowel sounds, organomegaly - Extremities Exam Extremities exam: Present: normal inspection, full ROM, normal capillary refill - Back Exam Back exam: Present: normal inspection, full ROM. Absent: tenderness, CVA tenderness (R), CVA tenderness (L), muscle spasm, paraspinal tenderness, vertebral tenderness - Neurological Exam Neurological exam: Present: alert, oriented X3, CN II-XII intact, normal gait, reflexes normal - Psychiatric Psychiatric exam: Present: normal affect, normal mood - Skin Skin exam: Present: warm, dry, intact, normal color. Absent: rash ED Course Vital Signs 09/21/20 20:19 Temperature 97.8 F Pulse Rate 76 Respiratory 18 Rate Blood Pressure 130/83 O2 Sat by Pulse 100 Oximetry ED Medical Decision Making - Lab Data Result diagrams: 09/21/20 21:25 09/21/20 21:25 - Radiology Data Radiology results: report reviewed, image reviewed [facility] [address] [place] [address] Ultrasound Report Signed Patient: OBMARBELLA PATEL MR#: [id number] : 1980 Acct:[id number] Age/Sex: 40 / F ADM Date: 09/21/20 Loc: ED Attending Dr: Ordering Physician: TRIPP RIBEIRO Date of Service: 09/21/20 Procedure(s): US abdomen limited Accession Number(s): [id number] cc: TRIPP RIBEIRO ULTRASOUND ABDOMEN, LIMITED INDICATION / CLINICAL INFORMATION: RUQ pain. COMPARISON: None available. FINDINGS: PANCREAS: Visualized portion shows no significant abnormality. LIVER: No significant abnormality. GALLBLADDER: Multiple gallstones are seen throughout the gallbladder. Gallbladder wall measures 2 mm. No pericholecystic fluid BILE DUCTS: No significant abnormality. Common bile duct measures mm. FREE FLUID: None. ADDITIONAL FINDINGS: None. IMPRESSION: 1. Cholelithiasis Signer Name: Fernandez Bright MD Signed: 09/21/2020 10:09 PM Workstation Name: [email or web address] Transcribed By: CW Dictated By: CHARISSE BRIGHT MD Electronically Authenticated By: CHARISSE BRIGHT MD Signed Date/Time: 09/21/202208 DD/ 07 TD/TT: [facility] [address] [place] [address] XRay Report Signed Patient: MARBELLA BROWN MR#: [id number] : 1980 Acct:[id number] Age/Sex: 40 / F ADM Date: 09/21/20 Loc: ED Attending Dr: Ordering Physician: TRIPP RIBEIRO Date of Service: 09/21/20 Procedure(s): XR chest routine 2V Accession Number(s): [id number] cc: TRIPP RIBEIRO Fluoro Time In Minutes: CHEST 2 VIEWS INDICATION / CLINICAL INFORMATION: RLL PAIN. COMPARISON: None available. FINDINGS: SUPPORT DEVICES: None. HEART / MEDIASTINUM: No significant abnormality. LUNGS / PLEURA: No significant pulmonary or pleural abnormality. No pn eumothorax. ADDITIONAL FINDINGS: No significant additional findings. IMPRESSION: 1. No acute findings. Signer Name: Fernandez Bright MD Signed: 09/21/2020 10:23 PM Workstation Name: [email or web address] Transcribed By: ROSELINE Dictated By: CHARISSE BRIGHT MD Electronically Authenticated By: CHARISSE BRIGHT MD Signed Date/Time: 09/21/202222 DD/ 22 TD/TT: - Medical Decision Making This is a 40-year-old -Spanish female with past medical history of morbid obesity who presents to the ED with complaint of acute onset persistent right upper quadrant abdominal pain that radiates to the epigastric area with nausea and right shoulder pain for the last 1 week, worse in the last 2 days. Patient states that the pain gets worse with food especially at night she has not been able to sleep because of persistent pain. In the ED, patient is alert and oriented x3 and is not in any distress. Patient was treated for pain in the ED and also received antacids and antiemetics. Lab test results were reviewed and are all nonactionable. Chest x-ray shows no acute cardiopulmonary abnormalities or pneumonitis. Gallbladder ultrasound showed multiple gallstones are seen throughout the gallbladder. Gallbladder wall measures 2 mm. No pericholecystic fluid. Patient the history and physical exam findings as well as the imaging reports of multiple gallstones in the gallbladder without evidence of cholecystitis, patient was discharged home on pain medications and antiemetics as well as antacids and was given a referral to the general surgeon on-call Dr. Collins for follow-up. Patient was advised to contact Dr. Collins's office first thing in the morning on Tuesday, September 22, 2020 to schedule a follow- up appointment. Patient was otherwise advised return to the ED immediately if symptoms get worse, otherwise follow-up with her primary care physician in 7 to 10 days for reevaluation. - Differential Diagnosis Gallstones; cholecystitis; GERD; gastritis; dehydration; pneumonia Critical care attestation.: If time is entered above; I have spent that time in minutes in the direct care of this critically ill patient, excluding procedure time. ED Disposition Clinical Impression: Cholelithiasis without cholecystitis, Acute abdominal pain in right upper quadrant GERD (gastroesophageal reflux disease) Qualifiers: Esophagitis presence: esophagitis presence not specified Qualified Code(s): K21.9 - Gastro-esophageal reflux disease without esophagitis Disposition: TO HOME OR SELFCARE Is pt being admited?: No Does the pt Need Aspirin: No Condition: Stable Instructions: Cholelithiasis, Hayd-in-Tytg, Abdominal Pain, Adult, [id number], Food Choices for Gastroesophageal Reflux Disease, Adult, [id number], Gastroesophageal Reflux Disease, Adult, [id number] Additional Instructions: All lab test results were reviewed and are all nonactionable. The gallbladder u ltrasound showed multiple gallstones with no sign of gallbladder infection. Chest x-ray showed no acute cardiopulmonary abnormalities or pneumonitis. Therefore take medications as needed for pain, also take the antacids to help the results and heartburn. Follow-up with the general surgeon on-call Dr. Collins for further evaluation for your gallstones identified during this visit. Contact Dr. Collins's office first thing this morning September 22, 2020 to schedule a follow-up appointment. Return to the ED immediately if symptoms get worse. Prescriptions: Dicyclomine [Bentyl] 20 mg PO Q6H PRN #30 tablet PRN Reason: Abdominal pain Esomeprazole Magnesium [NexIUM] 40 mg PO QDAY #30 capsule. Famotidine [Pepcid] 20 mg PO BID #60 tablet traMADoL [Ultram] 50 mg PO Q6HR PRN #12 tablet PRN Reason: Pain Ondansetron [Zofran Odt] 4 mg PO Q6HR PRN #20 tab.rapdis PRN Reason: Nausea Referrals: FERNY COLLINS DO [Staff Physician] - 2-3 Days [facility] [Provider Group] - 7-10 days Forms: Work/School Release Form(ED) Time of Disposition: 02:30 Print Language: [place]
== END 2020-09-22 02:51 | disposition home or self-care (01) ==
LOC: ED 16:52
DX: K80.20 Calculus of gallbladder without cholecystitis without obstruction (principal); K21.9 Gastro-esophageal reflux disease without esophagitis
CPT/HCPCS: 36415; 71046; 76705; 80053; 81001; 83690; 84484; 84703; 85025; 96372; 99284; J1885; Q0162

== ENCOUNTER 2020-10-07 06:00 | Day surgery (SDC) | payer MEDICAID ==
[2020-10-07] MEDS ORDERED: LACTATED RINGERS 1,000 ML ONE (06:34)
[2020-10-07] MEDS ORDERED: ceFAZolin/STERILE WATER 2 GM/20 ML SYRINGE IV NR (07:00)
[2020-10-07] MEDS ORDERED: LIDOCAINE (1%) 10 MG/1 ML VIAL 20 ML MDV ONE (07:08)
[2020-10-07] MEDS ORDERED: BUPIVACAINE/PF (0.5%) 5 MG/1 ML 30 ML VIAL INFILTRATI ONE (07:08)
[2020-10-07] MEDS ORDERED: ONDANSETRON 4 MG/2 ML INJ IV PRN (07:20)
[2020-10-07] MEDS ORDERED: ACETAMINOPHEN 500 MG TAB PO NR (07:20)
[2020-10-07] MEDS ORDERED: HYDROmorphone 1 MG/1 ML INJ IV PRN (07:20)
[2020-10-07] MEDS ORDERED: MAGNESIUM OXIDE 400 MG TAB PO NR (07:20)
--- NOTE | 2020-10-07 07:20 | Anesthesia Consultation ---
Anesthesia Consult and Med Hx Date of service: 10/07/20 - Airway Anesthetic Teeth Evaluation: Good ROM Head & Neck: Adequate Mental/Hyoid Distance: Adequate Mallampati Class: Class II Intubation Access Assessment: Good - Pre-Operative Health Status ASA Pre-Surgery Classification: ASA2 Proposed Anesthetic Plan: General - Pulmonary Hx Asthma: No COPD: No Hx Pneumonia: No - Cardiovascular System Hx Hypertension: No - Central Nervous System Hx Seizures: No Hx Psychiatric Problems: No - Gastrointestinal Hx Gastroesophageal Reflux Disease: Yes - Endocrine Hx Renal Disease: No Hx End Stage Renal Disease: No Hx Hypothyroidism: No Hx Hyperthyroidism: No - Hematic Hx Anemia: No Hx Sickle Cell Disease: No - Other Systems Hx Alcohol Use: No Hx Obesity: Yes
--- NOTE | 2020-10-07 07:20 | Anesthesia Day of Surgery ---
Anesthesia Day of Surgery - Day of Surgery Patient Examined: Yes Patient H&P Reviewed: Yes Patient is NPO: Yes
[2020-10-07] MEDS ORDERED: ACETAMINOPHEN 500 MG TAB ONE (07:25)
[2020-10-07] MEDS ORDERED: ROCURONIUM 50 MG/5 ML INJ IV ONE (07:26)
[2020-10-07] MEDS ORDERED: dexAMETHasone 20 MG/5 ML VIAL ONE (07:26)
[2020-10-07] MEDS ORDERED: KETOROLAC 30 MG/1 ML INJ ONE (07:26)
[2020-10-07] MEDS ORDERED: LIDOCAINE MPF (2%) 20 MG/1 ML VIAL 5 ML ONE (07:26)
[2020-10-07] MEDS ORDERED: propofoL 200 MG/20 ML VIAL IV ONE (07:27)
[2020-10-07] MEDS ORDERED: CELECOXIB 200 MG CAP ONE (07:27)
[2020-10-07] MEDS ORDERED: fentaNYL 250 MCG/5 ML INJ ONE (07:27)
[2020-10-07] MEDS ORDERED: LACTATED RINGERS 1,000 ML IV SCH (07:30)
[2020-10-07] MEDS ORDERED: MIDAZOLAM 2 MG/2 ML INJ IV NR (08:00)
[2020-10-07] MEDS ORDERED: CELECOXIB 200 MG CAP PO NR (08:00)
[2020-10-07] MEDS ORDERED: ePHEDrine SULFATE 50 MG/1 ML INJ ONE (08:27)
[2020-10-07] MEDS ORDERED: .SODIUM CHLORIDE 0.9% IRRIG SOLN 3000 ML IR ONE (08:30)
[2020-10-07] MEDS ORDERED: LIDOCAINE (1%) 10 MG/1 ML VIAL 20 ML MDV INFILTRATI ONE (08:30)
[2020-10-07] MEDS ORDERED: BUPIVACAINE/PF (0.5%) 5 MG/1 ML 10 ML VIAL INFILTRATI ONE (08:31)
[2020-10-07] MEDS ORDERED: HYDROmorphone 1 MG/1 ML INJ ONE (08:46)
[2020-10-07] MEDS ORDERED: SUGAMMADEX SODIUM 200 MG/2 ML VIAL IV ONE (09:15)
--- NOTE | 2020-10-07 09:15 | Short Stay Summary ---
Short Stay Documentation Date of service: 10/07/20 - History Principal diagnosis: symptomatic cholelithiasis H&P: obtained from office - Allergies and Medications Current Medications: Allergies chloroquine Allergy (Verified 05/04/16 22:28) Vomiting Home Medications Medication Instructions Recorded Confirmed Last Taken Type Dicyclomine [Bentyl] 20 mg PO Q6H PRN #30 tablet 09/22/20 09/29/20 Unknown Rx Esomeprazole Magnesium [NexIUM] 40 mg PO QDAY #30 capsule. 09/22/20 09/29/20 Unknown Rx Famotidine [Pepcid] 20 mg PO BID #60 tablet 09/22/20 09/29/20 Unknown Rx traMADoL [Ultram] 50 mg PO Q6HR PRN #12 tablet 09/22/20 09/29/20 Unknown Rx Active Medications Acetaminophen (Acetaminophen 500 Mg Tab) 1,000 mg PO ONCE NR Stop: 10/07/20 16:00 Cefazolin Sodium (Cefazolin/Sterile Water 2 Gm/20 Ml Syringe) 2 gm IV PREOP NR Stop: 10/07/20 13:00 Celecoxib (Celecoxib 200 Mg Cap) 400 mg PO PREOP NR Stop: 10/07/20 16:00 Hydromorphone HCl (Hydromorphone 1 Mg/1 Ml Inj) 0.25 mg IV Q10MIN PRN PRN Reason: Pain, Moderate (4-6) Stop: 10/07/20 23:00 Hydromorphone HCl (Hydromorphone 1 Mg/1 Ml Inj) 0.5 mg IV Q10MIN PRN PRN Reason: Pain , Severe (7-10) Stop: 10/07/20 23:00 Lactated Ringer's (Lactated Ringers) 1,000 mls @ 125 mls/hr IV DIRECT LARISA Magnesium Oxide (Magnesium Oxide 400 Mg Tab) 400 mg PO ONCE NR Stop: 10/07/20 10:00 Midazolam HCl (Midazolam 2 Mg/2 Ml Inj) 2 mg IV PREOP NR Stop: 10/07/20 23:59 Ondansetron HCl (Ondansetron 4 Mg/2 Ml Inj) 4 mg IV ONCE PRN PRN Reason: Nausea And Vomiting Stop: 10/07/20 10:00 - Brief post op/procedure progress note Date of procedure: 10/07/20 Pre-op diagnosis: symptomatic cholelithiasis Post-op diagnosis: same Procedure: laparoscopic cholecystectomy Anesthesia: GETA, local Findings: 1. Contracted gallbladder full of stones, with adhesions to omentum 2. Adhesions from liver to anterior abdominal wall 3. Umbilical hernia containing omentum Surgeon: FERNY COLLINS Assistant Paralegal: THOMAS HOANG Estimated blood loss: minimal Pathology: list (gallbladder) Specimen disposition: to lab Condition: stable - Hospital course Hospital course: Pt observed in PACU and discharged to home in stable condition when criteria met. - Disposition Condition at discharge: Good Disposition: DC-01 TO HOME OR SELFCARE Short Stay Discharge Plan Activity: other (No heavy lifting for the next 2 to 3 weeks, no greater than 15 pounds) Diet: regular Wound: open to air, per your surgeon's advice (May shower tomorrow. Pat incisions dry, do not scrub) Additional Instructions: See printed discharge instructions Follow up with: JEFE ARRIAGA MD [Primary Care Provider] - 7 Days FERNY COLLINS DO [Staff Physician] - 14 Days Prescriptions: Ibuprofen [Motrin 800 MG tab] 800 mg PO Q8HR PRN #30 tablet PRN Reason: Pain, Moderate (4-6) HYDROcodone/APAP 5-325 [[place] 5/325] 1 each PO Q6HR PRN #20 tablet PRN Reason: Pain , Severe (7-10)
--- NOTE | 2020-10-07 09:20 | Operative Report ---
Operative Report Operative Report: Date of procedure: 10/07/20 Pre-op diagnosis: symptomatic cholelithiasis Post-op diagnosis: same Procedure: laparoscopic cholecystectomy Anesthesia: GETA, local Findings: 1. Contracted gallbladder full of stones, with adhesions to omentum 2. Adhesions from liver to anterior abdominal wall 3. Umbilical hernia containing omentum Surgeon: FERNY COLLINS Financial Administrative Assistant: THOMAS HOANG Estimated blood loss: minimal Pathology: list (gallbladder) Specimen disposition: to lab Condition: stable Hospital course: Pt observed in PACU and discharged to home in stable condition when criteria met. HPI an indication: 40-year-old female who presented to the surgery clinic with complaints of intermittent right upper quadrant abdominal pain. Patient had a work-up consisting of blood work and imaging. Blood work was unremarkable and imaging revealed cholelithiasis without evidence of cholecystitis or biliary ductal dilatation. Patient symptoms are consistent with symptomatic cholel ithiasis. It was recommended that the patient undergo cholecystectomy. All risks, benefits, alternatives to surgery were discussed in detail and questions answered. Consent was obtained for laparoscopic, possible open cholecystectomy, possible cholangiogram. Procedure in detail: The patient was identified in the preoperative area and taken back to the operating room, placed on the operating room table in supine position. After anesthesia was induced, the abdomen was prepped and draped in usual sterile fashion and timeout was performed. Local anesthetic was infiltrated into all of the skin incision sites. Using an 11 blade a aileen incision was made at the umbilicus through which a Veress needle was inserted. The positioning of the Veress needle was confirmed using saline drop test and the abdomen insufflated to 15 mmHg without incident. Of note the patient did have a reducible umbilical hernia at the umbilicus. The Veress needle was removed and the incision elongated. A 5 mm Optiview trocar was placed through this incision. The abdomen was inspected and there was no underlying injury to any of the abdominal contents. The gallbladder was visualized and appeared contracted. There were adhesions from the liver to the anterior abdominal wall. A 5 mm right upper quadrant and right lateral abdominal wall trochars were placed under direct visualization. The area of the umbilicus was visualized and the hernia was identified. There was a small piece of omentum adhesed to the hernia. The 5 mm trocar was removed and a 12 mm trocar placed at the umbilicus under direct visualization. A 5 mm subxiphoid trocar was placed under direct visualization. The patient was placed in reverse Trendelenburg and tilted to the left. The adhesions from the liver to the anterior abdominal wall were dissected using electrocautery. The gallbladder fundus was grasped and retracted cephalad and above the liver. Omental adhesions to the gallbladder were dissected using electrocautery and blunt dissection with the [place]. The gallbladder infundibulum was grasped and retracted laterally and the cystic duct and artery were carefully dissected. The critical view was very meticulously achieved and the cystic duct and artery were the only 2 structures seen entering the gallbladder. 3 clips were placed on the proximal aspect of the cystic duct and 1 distally and 2 clips on the cystic artery proximally and one distally. These structures were transected in between the clips using EndoShears. The gallbladder was then dissected off the liver bed using hook electrocautery. It was placed into an Endo Catch bag and removed via the 12 mm port. The gallbladder fossa was inspected and there was no bleeding or bile leakage. Hemostasis was ensured. The clips on the cystic duct and artery were visualized and intact. The patient was placed in neutral position and all ports removed. The omentum adhered at the site of the umbilical hernia was carefully dissected using a hemostat and cautery until it was completely reduced. The umbilical fascia was then closed using a running 0 Vicryl stitch. Local anesthetic was once again infiltrated into all skin incision sites. The skin was approximated using 4-0 Monocryl subcuticular stitches and skin glue. At the end case all sponge, instrument, sharp counts were correct 2. The patient was awoken from anesthesia, extubated, and taken to PACU in stable condition.
[2020-10-07] MEDS: HYDROmorphone 1 MG/1 ML INJ IV PRN ×2 (09:47→09:57)
[2020-10-07 10:17] VITALS: BP 124/69
--- NOTE | 2020-10-07 15:58 | Post Anesthesia Evaluation ---
- Post Anesthesia Evaluation Patient Participated: Yes Airway Patent: Yes Stable Respiratory Function: Yes Nausea/Vomiting: No Temp > 96.8F: Yes Pain Manageable: Yes Adequeate Hydration: Yes Anesthesia Complications: No Block Receding Appropriately: Not Applicable Patient on Ventilator: No
== END 2020-10-07 10:45 | disposition home or self-care (01) ==
LOC: OR 06:00
PROVIDERS: ATTEND Surgery
DX: K80.10 Calculus of gallbladder with chronic cholecystitis without obstruction (principal); K21.9 Gastro-esophageal reflux disease without esophagitis; E66.9 Obesity, unspecified; Z79.899 Other long term (current) drug therapy; Z98.890 Other specified postprocedural states; Z68.36 Body mass index [BMI] 36.0-36.9, adult
CPT/HCPCS: 47562; 81025; 88304; A4217; J0690; J1100; J1170; J1885; J2250; J2405; J2704; J3010; J7120

== ENCOUNTER 2020-11-20 11:10 | Outpatient (CLI) | payer MEDICAID ==
[2020-11-20 11:50] LABS: Alanine Aminotransferase 31 units/L (7-56); Albumin 3.9 g/dL (3.9-5); Blood Urea Nitrogen 18 mg/dL (7-17); Calcium 9.4 mg/dL (8.4-10.2); Hemolysis Index 2
[2020-11-20 11:51] LABS: BUN/Creatinine Ratio 26
== END 2020-11-20 11:11 | disposition home or self-care (01) ==
LOC: LAB 11:10
PROVIDERS: ATTEND Surgery
DX: R19.8 Other specified symptoms and signs involving the digestive system and abdomen (principal)
CPT/HCPCS: 36415; 80053

== ENCOUNTER 2021-11-23 07:19 | Emergency (ER) | payer MEDICAID ==
[2021-11-23 08:00] VITALS: BP 120/78
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
--- NOTE | 2021-11-23 08:59 | XRay Report ---
LEFT WRIST 3 VIEWS INDICATION: injury. COMPARISON: None. IMPRESSION: There is moderate soft tissue swelling on the dorsum of the wrist. No displaced fractur e, ligamentous injury or significant degenerative changes are identified. There are 2 small calcific densities in the dorsal soft tissues which likely represent chronic soft tissue calcifications. If po int tenderness is present, CT could be obtained. Signer Name: Felix Stout Jr, MD Signed: 11/23/2021 8:55 AM Workstation Name: [id number]
[2021-11-23] MEDS ORDERED: IBUPROFEN 800 MG TAB PO ONE (09:03)
== END 2021-11-23 10:09 | disposition home or self-care (01) ==
LOC: ED 07:19
DX: S63.592A Other specified sprain of left wrist, initial encounter (principal); Z88.8 Allergy status to other drugs, medicaments and biological substances; Z79.899 Other long term (current) drug therapy; Y04.8XXA Assault by other bodily force, initial encounter; Y93.89 Activity, other specified; Y92.89 Other specified places as the place of occurrence of the external cause; Y99.8 Other external cause status
CPT/HCPCS: 99283